=== PATIENT | male | born 1975 | race Caucasian/White ===

== ENCOUNTER 2016-04-30 11:08 | Emergency (ER) | payer SELFPAY ==
[~2016-04-30] VITALS: Ht 170.2 cm; Wt 88.0 kg
[~2016-04-30 11:08] MED LIST: BENA25TA3 PO; HYDR-3133 PO; PRED20 PO
[2016-04-30 11:09] VITALS: BP 137/97; PULSE 77; RESP 14; TEMP 97.6; O2SAT 95
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
== END 2016-04-30 13:02 | disposition left against medical advice (07) ==
LOC: NEPB 11:08
DX: T14.8 Other injury of unspecified body region (principal); W57.XXXA Bitten or stung by nonvenomous insect and other nonvenomous arthropods, initial encounter
CPT/HCPCS: 99281